=== PATIENT | male | born 1990 | race African-American/Black ===

== ENCOUNTER 2020-10-04 19:41 | Emergency (ER) | payer SELFPAY | END 2020-10-04 20:10 | disposition home or self-care (01) | LOC: ERS 19:41 | DX: R10.9 Unspecified abdominal pain (principal) | CPT/HCPCS: 99281 ==

== ENCOUNTER 2021-03-04 13:24 | Emergency (ER) | payer SELFPAY | END 2021-03-04 14:13 | disposition home or self-care (01) | LOC: ERS 13:24 | DX: B07.9 Viral wart, unspecified (principal) | CPT/HCPCS: 99282 ==